=== PATIENT | female | born 1985 | race Caucasian/White ===

== ENCOUNTER 2017-02-17 16:46 | Emergency (ER) | payer OTHER | END 2017-02-17 17:20 | disposition home or self-care (01) | LOC: MADERS 16:46 | DX: K04.7 Periapical abscess without sinus (principal); Z79.899 Other long term (current) drug therapy ==

== ENCOUNTER 2017-04-17 13:18 | Emergency (ER) | payer OTHER ==
[2017-04-17] MEDS ORDERED: Ketorolac Tromethamine 60 MG/2 ML VIAL ONE (14:31)
== END 2017-04-17 14:42 | disposition home or self-care (01) ==
LOC: MADERS 13:18
DX: K02.9 Dental caries, unspecified (principal); F31.9 Bipolar disorder, unspecified; F17.210 Nicotine dependence, cigarettes, uncomplicated; Z87.442 Personal history of urinary calculi
CPT/HCPCS: 96372; J1885